=== PATIENT | female | born 1990 | race Caucasian/White ===

== ENCOUNTER 2016-11-15 14:27 | Outpatient (CLI) | payer OTHER ==
[2016-11-15 14:53] VITALS: BMI 31.9
[2016-11-15 15:03] LABS: SPECIFIC GRAVITY 1.015 (1.001-1.030); URINE BILIRUBIN NEGATIVE (NEGATIVE); URINE BLOOD TRACE (NEGATIVE); URINE GLUCOSE (UA) NEGATIVE (NEGATIVE); URINE LEUKOCYTE ESTERASE TRACE (NEGATIVE); URINE NITRITE NEGATIVE (NEGATIVE); URINE PROTEIN TRACE (NEGATIVE); URINE UROBILINOGEN NORMAL (0-1 mg/dl)
[2016-11-15 15:07] LABS: URINE APPEARANCE CLEAR; URINE COLOR AMBER
[2016-11-15 15:17] LABS: URINE BACTERIA 2+
== END 2016-11-15 14:28 | disposition home or self-care (01) ==
LOC: FBC 14:27 → FBCOUT 14:27
PROVIDERS: ATTEND Family Medicine
DX: O21.9 Vomiting of pregnancy, unspecified (principal); O26.899 Other specified pregnancy related conditions, unspecified trimester; R50.9 Fever, unspecified; N23 Unspecified renal colic; Z3A.00 Weeks of gestation of pregnancy not specified
CPT/HCPCS: 87086; 81001; 59050; G0463

== ENCOUNTER 2016-11-15 15:20 | Emergency (ER) | payer OTHER ==
[2016-11-15] MEDS ORDERED: ONDANSETRON 4 MG/2ML 2 ML VIAL ONE (16:19)
[2016-11-15] MEDS ORDERED: LACTATED RINGERS 2,000 ML ONE (16:19)
[2016-11-15 16:35] LABS: ABSOLUTE NEUTROPHIL COUNT 8.2 K/mm3 (1.8-7.7); BASO % 0.2 % (0.2-1.0); HEMATOCRIT 39.9 % (37.0-47.0); HEMOGLOBIN 13.4 gm/l (12.0-16.0); IMM NEUT # 0.1 K/mm3 (0-0.2); IMM NEUT% 0.5 % (0-1); LYMPH # 0.5 (1.0-4.8); LYMPH % 5.1 % (15-45); MEAN CELL VOLUME 94.3 fl (81.0-99.0); MEAN CORPUSCULAR HEMOGLOBIN 31.7 pg (27.0-31.0); MEAN CORPUSCULAR HGB CONC 33.6 g/dl (33.0-37.0); MONO # 0.4 (0.0-0.8); MONO % 4.6 % (4-12); NEUT % 89.6 % (43-75); PLATELET COUNT 158 K/mm3 (130-400); RED CELL DISTRIBUTION WIDTH 13.2 % (11.5-14.5)
[2016-11-15 17:05] LABS: ALB/GLOB RATIO 1.3 (>1.0); ALBUMIN 3.7 gm/dL (3.5-5.7); CALCIUM 8.5 mg/dL (8.6-10.3)
[2016-11-15] MEDS ORDERED: ACETAMINOPHEN 500 MG TABLET ONE (17:20)
== END 2016-11-15 18:43 | disposition home or self-care (01) ==
LOC: ED 15:20
DX: O26.892 Other specified pregnancy related conditions, second trimester (principal); R50.9 Fever, unspecified; M54.5 Low back pain; N23 Unspecified renal colic; R19.7 Diarrhea, unspecified; O21.2 Late vomiting of pregnancy; Z3A.24 24 weeks gestation of pregnancy